=== PATIENT | male | born 1970 | race Caucasian/White ===

== ENCOUNTER 2017-11-02 13:01 | Inpatient (IN) | payer MEDICARE, MEDICAID ==
[~2017-11-02] VITALS: Ht 182.9 cm; Wt 226.4 kg
[~2017-11-02 13:01] MED LIST: ASPI-611 PO; BIOT10005 PO; BUDE10.22 INH; CLIN-80 PO; CYCL5TAB PO; DULO60CA64 PO; FLUT16SP20 BOTHNARES; FURO-150 PO; GABA-532 PO; HUM10VIA; IBUP-1986 PO; MAGN400C PO; METF10002 PO; MONT10TA24 PO; MULT-933 PO; POTA8TAB8 PO; VALS160T29 PO
[2017-11-02 13:59] LABS: BASOPHILS % (AUTO) 0.4 % (0-1); EOSINOPHILS # (AUTO) 0.3 X10'3 (0-0.9); EOSINOPHILS % (AUTO) 2.6 % (0-6); HEMATOCRIT 35.8 % (42.0-52.0); HEMOGLOBIN 12.3 g/dl (14.0-17.9); LYMPHOCYTES # (AUTO) 2.1 X10'3 (1.1-4.8); MEAN CORPUSCULAR HEMOGLOBIN 27.9 PG (27.0-31.0); MEAN CORPUSCULAR HGB CONC 34.3 % (33.0-36.5); MEAN CORPUSCULAR VOLUME 81.2 FL (78-98); MEAN PLATELET VOLUME 7.2 FL (7.4-10.4); MONOCYTES # (AUTO) 0.6 X10'3 (0-0.9); MONOCYTES % (AUTO) 6.6 % (2-12); NEUTROPHILS # (AUTO) 6.6 X10'3 (1.8-7.7); NEUTROPHILS % (AUTO) 68.4 % (42-75); PLATELET COUNT 329 X10'3 (140-440); RED BLOOD COUNT 4.41 X10'6 (4.70-6.10); RED CELL DISTRIBUTION WIDTH 14.8 % (11.5-14.5); WHITE BLOOD COUNT 9.7 X10'3 (4.5-11.0)
[2017-11-02 14:09] LABS: INR 0.9 INR; PARTIAL THROMBOPLASTIN TIME 29 SECONDS (22-32); PROTHROMBIN TIME 9.2 SECONDS (9.0-12.0)
[2017-11-02 14:19] LABS: ALANINE AMINOTRANSFERASE 20 U/L (12-78); ALBUMIN 2.6 G/DL (3.4-5.0); ALBUMIN/GLOBULIN RATIO 0.5 (1.1-1.5); ALKALINE PHOSPHATASE 100 IU/L (46-116); ANION GAP 9 (8-16); ASPARTATE AMINO TRANSFERASE 13 U/L (10-37); BILIRUBIN,TOTAL 0.3 MG/DL (0.1-1.0); BLOOD UREA NITROGEN 19 MG/DL (7-18); BUN/CREATININE RATIO 17.4 (5.4-32.0); CALCIUM 8.5 MG/DL (8.5-10.1); CHLORIDE 93 MMOL/L (99-107); CREATININE 1.09 MG/DL (0.60-1.10); MAGNESIUM 1.7 MG/DL (1.5-2.4); POTASSIUM 4.2 MMOL/L (3.5-5.1); SODIUM 129 MMOL/L (135-145); TOTAL CARBON DIOXIDE 26.8 MMOL/L (24-32); TOTAL PROTEIN 8.1 G/DL (6.4-8.2); eGFR 73 ML/MIN
[2017-11-02 14:24] LABS: GLUCOSE 487 MG/DL (70-104)
[2017-11-02] MEDS ORDERED: MORPHINE 2MG in 2ml NS syringe IV PRN (15:05)
[2017-11-02] MEDS ORDERED: proCHLORperazine 10 MG/2 ml inj IV ONE (15:05)
[2017-11-02] MEDS ORDERED: piperacillin/tazo 3.375gm/50ml 50 ML IV ONE (15:15)
[2017-11-02] MEDS ORDERED: vancomycin/NS 1 GM ADD-VANTAGE 250 ML IV ONE (15:15)
[2017-11-02] MEDS ORDERED: insulin regular, human 10 units/0.1 ml syringe IV ONE (15:45)
[2017-11-02 15:56] LABS: C-REACTIVE PROTEIN 11.46 MG/DL (0.0-0.5)
[2017-11-02] MEDS: morphine 4 MG/ML inj SYRINge IV PRN ×4 (16:01→22:26)
[2017-11-02 17:38] LABS: CLARITY,URINE CLEAR (Clear); COLOR,URINE YELLOW (Yellow); GLUCOSE, URINE >=1000 mg/dl (Neg); KETONES,URINE NEGATIVE (Neg); LEUKOCYTE ESTERASE ,URINE NEGATIVE (Neg); NITRITES, URINE NEGATIVE (Neg); OCCULT BLOOD,URINE SMALL (Neg); PROTEIN,URINE 100 mg/dl (Neg); UROBILINOGEN,URINE 0.2 E.U/dL (0.2-1.0)
[2017-11-02 17:39] LABS: UA COLLECTION TYPE URINAL
[2017-11-02 17:58] LABS: BACTERIA,URINE FEW /HPF (Neg); MUCUS STRANDS FEW /LPF (Neg); RBC,URINE 0-2 /HPF (0-2); SQUAMOUS EPITHELIAL CELL,UR FEW /LPF (FEW); WBC,URINE 0-4 /HPF (0-4)
[2017-11-02] MEDS ORDERED: dextrose ORAL solution 15 GM/59 ML bottle PO PRN ×2 (18:50)
[2017-11-02] MEDS ORDERED: glucagon, human recombinant 1mg kit SUBCUT PRN (18:50)
[2017-11-02] MEDS ORDERED: MESSAGE TO PHARMACY PO ONE (18:50)
[2017-11-02] MEDS ORDERED: dextrose 50%-water 50ml dispensing syringe IV PRN ×2 (18:50)
[2017-11-02] MEDS ORDERED: mag hydrox/Alum hydrox/simeth 30ml oral suspension PO PRN (19:00)
[2017-11-02] MEDS ORDERED: acetaminophen 325mg tablet PO PRN (19:00)
[2017-11-02] MEDS ORDERED: ondansetron/PF 4mg/2ml inj IV PRN (19:00)
[2017-11-02] MEDS ORDERED: morphine 4 MG/ML inj SYRINge IV PRN (19:00)
[2017-11-02 19:19] LABS: HEMOGLOBIN A1C 11.3 % (4.5-6.2)
[2017-11-02] MEDS: furosemide 20MG tablet PO SCH (20:34)
[2017-11-02] MEDS: heparin, porcine 5000 units/ml vial SQ SCH (20:34)
[2017-11-02] MEDS ORDERED: cyclobenzaprine 10mg tablet PO PRN (21:00)
[2017-11-02] MEDS: insulin Lispro (HumaLOG) vial - multi-dose SQ SCH (22:31)
[2017-11-02] MEDS: montelukast 10mg tablet PO SCH (22:32)
[2017-11-03] VITALS: BP 104/69
[2017-11-03] MEDS ORDERED: piperacillin/tazo 4.5gm/100ml 100 ML IV SCH
[2017-11-03] MEDS: gabapentin 300mg capsule PO SCH ×4 (01:05→23:30)
[2017-11-03] MEDS: magnesium oxide 400mg tablet PO SCH ×4 (01:05→23:30)
[2017-11-03] MEDS: magnesium hydroxide 30ml (MOM) UD suspension PO PRN (01:05)
[2017-11-03] MEDS: morphine 4 MG/ML inj SYRINge IV PRN ×4 (03:05→23:30)
[2017-11-03 05:21] LABS: BASOPHILS % (AUTO) 0.3 % (0-1); EOSINOPHILS # (AUTO) 0.3 X10'3 (0-0.9); EOSINOPHILS % (AUTO) 3.9 % (0-6); HEMATOCRIT 34.3 % (42.0-52.0); HEMOGLOBIN 11.5 g/dl (14.0-17.9); LYMPHOCYTES # (AUTO) 1.9 X10'3 (1.1-4.8); LYMPHOCYTES % (AUTO) 22.3 % (21-51); MEAN CORPUSCULAR HEMOGLOBIN 27.7 PG (27.0-31.0); MEAN CORPUSCULAR HGB CONC 33.4 % (33.0-36.5); MEAN CORPUSCULAR VOLUME 83.1 FL (78-98); MEAN PLATELET VOLUME 7.9 FL (7.4-10.4); MONOCYTES # (AUTO) 0.6 X10'3 (0-0.9); MONOCYTES % (AUTO) 6.5 % (2-12); NEUTROPHILS # (AUTO) 5.8 X10'3 (1.8-7.7); PLATELET COUNT 307 X10'3 (140-440); RED BLOOD COUNT 4.13 X10'6 (4.70-6.10); RED CELL DISTRIBUTION WIDTH 14.7 % (11.5-14.5); WHITE BLOOD COUNT 8.7 X10'3 (4.5-11.0)
[2017-11-03 05:58] LABS: ALANINE AMINOTRANSFERASE 15 U/L (12-78); ALBUMIN 2.3 G/DL (3.4-5.0); ALBUMIN/GLOBULIN RATIO 0.5 (1.1-1.5); ALKALINE PHOSPHATASE 81 IU/L (46-116); ANION GAP 5 (8-16); ASPARTATE AMINO TRANSFERASE 8 U/L (10-37); BILIRUBIN,TOTAL 0.4 MG/DL (0.1-1.0); BLOOD UREA NITROGEN 18 MG/DL (7-18); BUN/CREATININE RATIO 18.2 (5.4-32.0); CALCIUM 8.6 MG/DL (8.5-10.1); CHLORIDE 99 MMOL/L (99-107); CREATININE 0.99 MG/DL (0.60-1.10); GLUCOSE 296 MG/DL (70-104); SODIUM 134 MMOL/L (135-145); TOTAL CARBON DIOXIDE 29.6 MMOL/L (24-32); TOTAL PROTEIN 7.3 G/DL (6.4-8.2); eGFR 81 ML/MIN
[2017-11-03] MEDS ORDERED: insulin glargine (Lantus) pen - multi-dose SQ SCH ×2 (07:30→17:30)
[2017-11-03 08:00] VITALS: BP 145/83
[2017-11-03] MEDS: heparin, porcine 5000 units/ml vial SQ SCH ×2 (08:00→21:02)
[2017-11-03] MEDS: furosemide 20MG tablet PO SCH ×2 (09:46→21:01)
[2017-11-03] MEDS: duloxetine 30mg CAPSULE.DR PO SCH (09:46)
[2017-11-03] MEDS: multivitamins, therapeutics tablet PO SCH (09:46)
[2017-11-03] MEDS: potassium chloride 8mEq ER tablet PO SCH (09:46)
[2017-11-03] MEDS: aspirin 81mg tab.chew PO SCH (09:47)
[2017-11-03] MEDS: CefTRIAXone 2gm/D5W 50ml 50 ML IV SCH ×3 (09:55→21:01)
[2017-11-03] MEDS: insulin Lispro (HumaLOG) vial - multi-dose SQ SCH ×3 (10:03→19:14)
[2017-11-03 11:00] VITALS: BP 133/74
[2017-11-03] MEDS: metroNIDAZOLE 500mg tablet PO SCH ×2 (13:22→21:01)
[2017-11-03] MEDS: oxyCODONE/APAP 10/325mg tablet PO PRN (15:55)
[2017-11-03] MEDS: insulin glargine (Lantus) pen - multi-dose SQ SCH (17:47)
[2017-11-03 18:25] VITALS: BP 140/72
[2017-11-03] MEDS: montelukast 10mg tablet PO SCH (21:02)
[2017-11-03] MEDS ORDERED: VANCOMYCIN LEVEL IV NR (22:30)
[2017-11-04] VITALS: BP 135/71
[2017-11-04] MEDS: oxyCODONE/APAP 10/325mg tablet PO PRN ×3 (02:02→17:41)
[2017-11-04] MEDS: morphine 4 MG/ML inj SYRINge IV PRN ×3 (04:52→20:20)
[2017-11-04] MEDS: magnesium hydroxide 30ml (MOM) UD suspension PO PRN (05:10)
[2017-11-04 05:58] LABS: BASOPHILS % (AUTO) 0.3 % (0-1); EOSINOPHILS # (AUTO) 0.5 X10'3 (0-0.9); EOSINOPHILS % (AUTO) 6.2 % (0-6); HEMATOCRIT 33.3 % (42.0-52.0); HEMOGLOBIN 11.1 g/dl (14.0-17.9); LYMPHOCYTES # (AUTO) 1.4 X10'3 (1.1-4.8); LYMPHOCYTES % (AUTO) 19.4 % (21-51); MEAN CORPUSCULAR HEMOGLOBIN 27.7 PG (27.0-31.0); MEAN CORPUSCULAR HGB CONC 33.4 % (33.0-36.5); MEAN CORPUSCULAR VOLUME 82.9 FL (78-98); MONOCYTES # (AUTO) 0.5 X10'3 (0-0.9); MONOCYTES % (AUTO) 6.4 % (2-12); NEUTROPHILS % (AUTO) 67.7 % (42-75); PLATELET COUNT 312 X10'3 (140-440); RED BLOOD COUNT 4.01 X10'6 (4.70-6.10); RED CELL DISTRIBUTION WIDTH 14.7 % (11.5-14.5); WHITE BLOOD COUNT 7.4 X10'3 (4.5-11.0)
[2017-11-04 06:44] LABS: ALANINE AMINOTRANSFERASE 16 U/L (12-78); ALBUMIN 2.1 G/DL (3.4-5.0); ALBUMIN/GLOBULIN RATIO 0.4 (1.1-1.5); ALKALINE PHOSPHATASE 76 IU/L (46-116); ANION GAP 5 (8-16); ASPARTATE AMINO TRANSFERASE 11 U/L (10-37); BILIRUBIN,TOTAL 0.2 MG/DL (0.1-1.0); BLOOD UREA NITROGEN 18 MG/DL (7-18); BUN/CREATININE RATIO 22.8 (5.4-32.0); CALCIUM 8.6 MG/DL (8.5-10.1); CHLORIDE 100 MMOL/L (99-107); CREATININE 0.79 MG/DL (0.60-1.10); GLUCOSE 164 MG/DL (70-104); POTASSIUM 4.2 MMOL/L (3.5-5.1); SODIUM 135 MMOL/L (135-145); TOTAL CARBON DIOXIDE 30.2 MMOL/L (24-32); TOTAL PROTEIN 6.9 G/DL (6.4-8.2); eGFR > 90 ML/MIN
[2017-11-04] MEDS: insulin glargine (Lantus) pen - multi-dose SQ SCH ×2 (07:09→17:44)
[2017-11-04 08:00] VITALS: BP 101/51
[2017-11-04] MEDS ORDERED: ketorolac tromethamine 15mg/ml inj. IM PRN (08:35)
[2017-11-04] MEDS: gabapentin 300mg capsule PO SCH ×3 (08:45→23:04)
[2017-11-04] MEDS: metroNIDAZOLE 500mg tablet PO SCH ×3 (08:45→20:19)
[2017-11-04] MEDS: CefTRIAXone 2gm/D5W 50ml 50 ML IV SCH ×2 (08:45→19:42)
[2017-11-04] MEDS: potassium chloride 8mEq ER tablet PO SCH (08:45)
[2017-11-04] MEDS: magnesium oxide 400mg tablet PO SCH ×3 (08:45→23:04)
[2017-11-04] MEDS: aspirin 81mg tab.chew PO SCH (08:45)
[2017-11-04] MEDS: duloxetine 30mg CAPSULE.DR PO SCH (08:45)
[2017-11-04] MEDS: multivitamins, therapeutics tablet PO SCH (08:45)
[2017-11-04] MEDS: furosemide 20MG tablet PO SCH ×2 (08:46→19:30)
[2017-11-04] MEDS: heparin, porcine 5000 units/ml vial SQ SCH ×2 (08:47→19:31)
[2017-11-04] MEDS: insulin Lispro (HumaLOG) vial - multi-dose SQ SCH ×3 (08:58→18:51)
[2017-11-04 11:46] VITALS: BP 97/45
[2017-11-04 12:18] VITALS: BP 117/74
[2017-11-04] MEDS: lactobacillus rhamnosus 10,000 MMU CELLS/CAPSULE PO SCH (19:30)
[2017-11-04 20:00] VITALS: BP 109/68
[2017-11-04] MEDS: montelukast 10mg tablet PO SCH (20:19)
[2017-11-04] MEDS: zolpidem 5mg tablet PO PRN (21:08)
[2017-11-05] VITALS: BP 159/63
[2017-11-05] MEDS: ketorolac tromethamine 15mg/ml inj. IV PRN ×3 (00:39→20:07)
[2017-11-05] MEDS: morphine 4 MG/ML inj SYRINge IV PRN ×4 (00:59→20:06)
[2017-11-05 05:34] LABS: BASOPHILS % (AUTO) 0.3 % (0-1); EOSINOPHILS # (AUTO) 0.5 X10'3 (0-0.9); EOSINOPHILS % (AUTO) 6.4 % (0-6); HEMATOCRIT 33.8 % (42.0-52.0); HEMOGLOBIN 11.4 g/dl (14.0-17.9); LYMPHOCYTES # (AUTO) 1.5 X10'3 (1.1-4.8); LYMPHOCYTES % (AUTO) 20.7 % (21-51); MEAN CORPUSCULAR HEMOGLOBIN 27.5 PG (27.0-31.0); MEAN CORPUSCULAR HGB CONC 33.6 % (33.0-36.5); MEAN CORPUSCULAR VOLUME 81.9 FL (78-98); MEAN PLATELET VOLUME 6.8 FL (7.4-10.4); MONOCYTES # (AUTO) 0.5 X10'3 (0-0.9); MONOCYTES % (AUTO) 6.2 % (2-12); NEUTROPHILS # (AUTO) 4.9 X10'3 (1.8-7.7); NEUTROPHILS % (AUTO) 66.4 % (42-75); PLATELET COUNT 339 X10'3 (140-440); RED BLOOD COUNT 4.13 X10'6 (4.70-6.10); RED CELL DISTRIBUTION WIDTH 15.2 % (11.5-14.5); WHITE BLOOD COUNT 7.3 X10'3 (4.5-11.0)
[2017-11-05 06:01] LABS: ALANINE AMINOTRANSFERASE 14 U/L (12-78); ALBUMIN 2.1 G/DL (3.4-5.0); ALBUMIN/GLOBULIN RATIO 0.4 (1.1-1.5); ALKALINE PHOSPHATASE 72 IU/L (46-116); ANION GAP 7 (8-16); ASPARTATE AMINO TRANSFERASE 12 U/L (10-37); BILIRUBIN,TOTAL 0.2 MG/DL (0.1-1.0); BLOOD UREA NITROGEN 25 MG/DL (7-18); BUN/CREATININE RATIO 27.2 (5.4-32.0); CALCIUM 8.3 MG/DL (8.5-10.1); CHLORIDE 102 MMOL/L (99-107); CREATININE 0.92 MG/DL (0.60-1.10); GLUCOSE 139 MG/DL (70-104); POTASSIUM 4.6 MMOL/L (3.5-5.1); SODIUM 137 MMOL/L (135-145); TOTAL CARBON DIOXIDE 28.4 MMOL/L (24-32); TOTAL PROTEIN 6.8 G/DL (6.4-8.2); eGFR 88 ML/MIN
[2017-11-05 08:00] VITALS: BP 138/67
[2017-11-05] MEDS: multivitamins, therapeutics tablet PO SCH (09:15)
[2017-11-05] MEDS: aspirin 81mg tab.chew PO SCH (09:16)
[2017-11-05] MEDS: lactobacillus rhamnosus 10,000 MMU CELLS/CAPSULE PO SCH ×2 (09:16→20:08)
[2017-11-05] MEDS: potassium chloride 8mEq ER tablet PO SCH (09:16)
[2017-11-05] MEDS: gabapentin 300mg capsule PO SCH ×3 (09:16→23:53)
[2017-11-05] MEDS: duloxetine 30mg CAPSULE.DR PO SCH (09:17)
[2017-11-05] MEDS: metroNIDAZOLE 500mg tablet PO SCH ×3 (09:17→20:45)
[2017-11-05] MEDS: magnesium oxide 400mg tablet PO SCH ×3 (09:17→23:53)
[2017-11-05] MEDS: furosemide 20MG tablet PO SCH ×2 (09:17→20:08)
[2017-11-05] MEDS: heparin, porcine 5000 units/ml vial SQ SCH ×2 (09:19→20:08)
[2017-11-05] MEDS: insulin glargine (Lantus) pen - multi-dose SQ SCH ×2 (09:28→17:40)
[2017-11-05] MEDS: insulin Lispro (HumaLOG) vial - multi-dose SQ SCH (09:29)
[2017-11-05] MEDS: CefTRIAXone 2gm/D5W 50ml 50 ML IV SCH ×2 (10:29→20:08)
[2017-11-05 12:00] VITALS: BP 144/88
[2017-11-05] MEDS: oxyCODONE/APAP 10/325mg tablet PO PRN (12:18)
[2017-11-05 20:00] VITALS: BP 158/92
[2017-11-05] MEDS: montelukast 10mg tablet PO SCH (20:45)
[2017-11-05] MEDS: zolpidem 5mg tablet PO PRN (21:58)
[2017-11-06] VITALS: BP 126/73
[2017-11-06] MEDS: morphine 4 MG/ML inj SYRINge IV PRN (01:25)
[2017-11-06 05:27] LABS: BASOPHILS % (AUTO) 0.3 % (0-1); EOSINOPHILS # (AUTO) 0.4 X10'3 (0-0.9); EOSINOPHILS % (AUTO) 6.3 % (0-6); HEMATOCRIT 34.1 % (42.0-52.0); HEMOGLOBIN 11.4 g/dl (14.0-17.9); LYMPHOCYTES # (AUTO) 1.1 X10'3 (1.1-4.8); LYMPHOCYTES % (AUTO) 17.2 % (21-51); MEAN CORPUSCULAR HEMOGLOBIN 27.6 PG (27.0-31.0); MEAN CORPUSCULAR HGB CONC 33.4 % (33.0-36.5); MEAN CORPUSCULAR VOLUME 82.5 FL (78-98); MEAN PLATELET VOLUME 7.1 FL (7.4-10.4); MONOCYTES # (AUTO) 0.3 X10'3 (0-0.9); MONOCYTES % (AUTO) 5.2 % (2-12); NEUTROPHILS # (AUTO) 4.7 X10'3 (1.8-7.7); PLATELET COUNT 293 X10'3 (140-440); RED BLOOD COUNT 4.13 X10'6 (4.70-6.10); RED CELL DISTRIBUTION WIDTH 14.8 % (11.5-14.5); WHITE BLOOD COUNT 6.6 X10'3 (4.5-11.0)
[2017-11-06 05:52] LABS: ALANINE AMINOTRANSFERASE 25 U/L (12-78); ALBUMIN/GLOBULIN RATIO 0.4 (1.1-1.5); ALKALINE PHOSPHATASE 71 IU/L (46-116); ANION GAP 6 (8-16); ASPARTATE AMINO TRANSFERASE 27 U/L (10-37); BILIRUBIN,TOTAL 0.2 MG/DL (0.1-1.0); BLOOD UREA NITROGEN 29 MG/DL (7-18); BUN/CREATININE RATIO 29.9 (5.4-32.0); CALCIUM 8.3 MG/DL (8.5-10.1); CHLORIDE 103 MMOL/L (99-107); CREATININE 0.97 MG/DL (0.60-1.10); GLUCOSE 152 MG/DL (70-104); POTASSIUM 4.6 MMOL/L (3.5-5.1); SODIUM 138 MMOL/L (135-145); TOTAL CARBON DIOXIDE 28.8 MMOL/L (24-32); TOTAL PROTEIN 6.5 G/DL (6.4-8.2); eGFR 83 ML/MIN
[2017-11-06 07:00] VITALS: BP 157/95
[2017-11-06] MEDS: insulin glargine (Lantus) pen - multi-dose SQ SCH (07:30)
[2017-11-06] MEDS: CefTRIAXone 2gm/D5W 50ml 50 ML IV SCH (08:00)
[2017-11-06] MEDS ORDERED: fluconazole-Diflucan 200mg/NS 100 ML IV SCH (08:00)
[2017-11-06] MEDS: lactobacillus rhamnosus 10,000 MMU CELLS/CAPSULE PO SCH (08:09)
[2017-11-06] MEDS: furosemide 20MG tablet PO SCH (08:09)
[2017-11-06] MEDS: aspirin 81mg tab.chew PO SCH (08:10)
[2017-11-06] MEDS: multivitamins, therapeutics tablet PO SCH (08:11)
[2017-11-06] MEDS: duloxetine 30mg CAPSULE.DR PO SCH (08:11)
[2017-11-06] MEDS: oxyCODONE/APAP 10/325mg tablet PO PRN (08:12)
[2017-11-06] MEDS: gabapentin 300mg capsule PO SCH (08:12)
[2017-11-06] MEDS: magnesium oxide 400mg tablet PO SCH (08:12)
[2017-11-06] MEDS: potassium chloride 8mEq ER tablet PO SCH (08:13)
[2017-11-06] MEDS: heparin, porcine 5000 units/ml vial SQ SCH (08:14)
[2017-11-06] MEDS: metroNIDAZOLE 500mg tablet PO SCH ×2 (08:16→13:55)
[2017-11-06] MEDS ORDERED: AMOX-422 PO (10:59)
[2017-11-06] MEDS ORDERED: LACT1CAP26 PO (10:59)
[2017-11-06] MEDS ORDERED: PER10325T PO (10:59)
[2017-11-06] MEDS ORDERED: FLUC100T9 PO (10:59)
[2017-11-06 11:00] VITALS: BP 147/87
[2017-11-06] MEDS: insulin Lispro (HumaLOG) vial - multi-dose SQ SCH (11:02)
[2017-11-06] MEDS ORDERED: VANCOMYCIN LEVEL IV NR (22:30)
== END 2017-11-06 15:00 | disposition home or self-care (01) | DRG 603 ==
LOC: ER 13:03 → ED HOLD 18:57 → SUR 3N 21:00
PROVIDERS: ADMIT Family Medicine; ATTEND Family Medicine
PROC: 5A09357 Assistance with Respiratory Ventilation, Less than 24 Consecutive Hours, Continuous Positive Airway Pressure (ICD-10-PCS; principal; 2017-11-03)
PROC: 0H9MXZX Drainage of Right Foot Skin, External Approach, Diagnostic (ICD-10-PCS; 2017-11-03)
DX: L03.115 Cellulitis of right lower limb (principal); E11.40 Type 2 diabetes mellitus with diabetic neuropathy, unspecified; E11.621 Type 2 diabetes mellitus with foot ulcer; E87.1 Hypo-osmolality and hyponatremia; B35.1 Tinea unguium; E44.1 Mild protein-calorie malnutrition; Z68.44 Body mass index [BMI] 60.0-69.9, adult; L03.116 Cellulitis of left lower limb; E11.65 Type 2 diabetes mellitus with hyperglycemia; J30.9 Allergic rhinitis, unspecified; E66.01 Morbid (severe) obesity due to excess calories; L97.519 Non-pressure chronic ulcer of other part of right foot with unspecified severity; D63.8 Anemia in other chronic diseases classified elsewhere; F32.9 Major depressive disorder, single episode, unspecified; A49.01 Methicillin susceptible Staphylococcus aureus infection, unspecified site; I10 Essential (primary) hypertension; M54.2 Cervicalgia; G47.33 Obstructive sleep apnea (adult) (pediatric); J44.9 Chronic obstructive pulmonary disease, unspecified; Z89.422 Acquired absence of other left toe(s); Z89.412 Acquired absence of left great toe; Z79.4 Long term (current) use of insulin; Z79.51 Long term (current) use of inhaled steroids; Z79.82 Long term (current) use of aspirin; Z79.899 Other long term (current) drug therapy; Z91.018 Allergy to other foods
CPT/HCPCS: 36415; 71045; 73600; 73620; 80053; 80202; 81001; 82948; 83036; 83605; 83735; 84145; 85025; 85610; 85651; 85730; 86140; 87040; 87070; 87077; 87186; 93005; 93970; 94640; 94660; 94760; 96365; 96366; 96375; 99285; A6257; A6446; A6449; J0696; J0780; J1450; J1644; J1815; J1885; J2270; J2543; J3370; J3490; J7030

== ENCOUNTER 2018-09-15 03:33 | Emergency (ER) | payer MEDICARE, MEDICAID ==
[~2018-09-15] VITALS: Ht 182.9 cm; Wt 227.0 kg
[~2018-09-15 03:33] MED LIST changes: -CLIN-80 PO; +FLUC100T9 PO; +LACT1CAP26 PO; +METF-438 PO; -METF10002 PO; +PER10325T PO; -VALS160T29 PO; +VALS160T30 PO
--- NOTE | 2018-09-15 03:44 | NUR ---
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
[2018-09-15] MEDS ORDERED: ondansetron/PF 4mg/2ml inj IV ONE (03:45)
[2018-09-15] MEDS ORDERED: morphine 4 MG/ML inj SYRINge IV PRN (03:45)
[2018-09-15] MEDS ORDERED: normal saline 1000ML IV soln IV ONE (03:45)
[2018-09-15 04:02] LABS: BASOPHILS % (AUTO) 0.2 % (0-1); EOSINOPHILS # (AUTO) 0.4 X10'3 (0-0.9); EOSINOPHILS % (AUTO) 4.2 % (0-6); HEMATOCRIT 38.4 % (42.0-52.0); HEMOGLOBIN 12.6 g/dl (14.0-17.9); LYMPHOCYTES # (AUTO) 1.8 X10'3 (1.1-4.8); LYMPHOCYTES % (AUTO) 19.7 % (21-51); MEAN CORPUSCULAR HEMOGLOBIN 27.3 PG (27.0-31.0); MEAN CORPUSCULAR HGB CONC 32.8 g/dL (33.0-36.5); MEAN CORPUSCULAR VOLUME 83.3 FL (78-98); MEAN PLATELET VOLUME 7.7 FL (7.4-10.4); MONOCYTES # (AUTO) 0.8 X10'3 (0-0.9); NEUTROPHILS # (AUTO) 6.3 X10'3 (1.8-7.7); NEUTROPHILS % (AUTO) 67.9 % (42-75); PLATELET COUNT 286 X10'3 (140-440); RED BLOOD COUNT 4.61 X10'6 (4.70-6.10); RED CELL DISTRIBUTION WIDTH 15.7 % (11.5-14.5); WHITE BLOOD COUNT 9.3 X10'3 (4.5-11.0)
[2018-09-15 04:03] LABS: INR 1.1 INR; PARTIAL THROMBOPLASTIN TIME 27 SECONDS (22-32); PROTHROMBIN TIME 10.7 SECONDS (9.0-12.0)
[2018-09-15] MEDS: morphine 10mg/ml inj. IV PRN ×2 (04:03→06:38)
[2018-09-15 04:06] LABS: ALANINE AMINOTRANSFERASE 31 U/L (12-78); ALBUMIN 2.9 G/DL (3.4-5.0); ALBUMIN/GLOBULIN RATIO 0.6 (1.1-1.5); ALKALINE PHOSPHATASE 88 IU/L (46-116); ANION GAP 11 (8-16); ASPARTATE AMINO TRANSFERASE 20 U/L (10-37); BILIRUBIN,TOTAL 0.4 MG/DL (0.1-1.0); BLOOD UREA NITROGEN 35 MG/DL (7-18); BUN/CREATININE RATIO 22.6 (5.4-32.0); CALCIUM 9.2 MG/DL (8.5-10.1); CHLORIDE 103 MMOL/L (99-107); CREATININE 1.55 MG/DL (0.60-1.10); GLUCOSE 311 MG/DL (70-104); LIPASE 101 U/L (73-393); MAGNESIUM 1.6 MG/DL (1.5-2.4); POTASSIUM 3.7 MMOL/L (3.5-5.1); SODIUM 138 MMOL/L (135-145); TOTAL CARBON DIOXIDE 24.2 MMOL/L (24-32); TOTAL PROTEIN 8.1 G/DL (6.4-8.2); eGFR 48 ML/MIN
[2018-09-15] MEDS ORDERED: vancomycin/NS 1 GM ADD-VANTAGE 250 ML IV ONE (05:05)
[2018-09-15] MEDS ORDERED: CefTRIAXone/D5W-Rocephin 1gm 50 ML IV ONE (05:05)
--- NOTE | 2018-09-15 05:11 | NUR ---
CALLED [facility] TO TRANSFER TO [facility]. WAS TOLD THEY WOULD CALL BACK WITH ETA OF TRANSFER AT 05:10.
--- NOTE | 2018-09-15 05:48 | NUR ---
CALLED [facility] FOR ETA AT 05:49. WAS TOLD STILL WAITING FOR ETA
[2018-09-15 06:39] VITALS: BP 142/72
[2018-09-25] MEDS ORDERED: MULT-963 PO (02:17)
[2018-09-25] MEDS ORDERED: SERT50TA PO (02:17)
[2018-09-25] MEDS ORDERED: ATOR80TA PO (02:17)
[2018-09-25] MEDS ORDERED: COU1T PO (02:17)
[2018-09-25] MEDS ORDERED: LEVO100T PO (02:17)
[2018-09-25] MEDS ORDERED: OXYB5TAB11 PO (02:17)
[2018-09-25] MEDS ORDERED: OXCA300T16 PO (02:17)
[2018-09-25] MEDS ORDERED: HYDR-3686 PO (02:17)
[2018-09-25] MEDS ORDERED: TRAZ-218 PO (02:17)
[2018-09-25] MEDS ORDERED: BUSP10TA11 PO (02:17)
[2018-09-25] MEDS ORDERED: DOXE10CA2 PO (02:17)
[2018-09-25] MEDS ORDERED: MAGN400C PO (02:17)
[2018-09-25] MEDS ORDERED: MIDO2.5T14 PO (02:17)
[2018-09-25] MEDS ORDERED: AMIO200T40 PO (02:17)
[2018-09-25] MEDS ORDERED: FAMO20TA8 PO (02:17)
[2018-09-25] MEDS ORDERED: FERR325T28 PO (02:17)
[2018-09-25] MEDS ORDERED: ESTR10TA9 PO (02:17)
== END 2018-09-15 07:02 | disposition short-term general hospital (02) ==
LOC: ER 03:33
DX: L03.314 Cellulitis of groin (principal); R19.7 Diarrhea, unspecified; R10.84 Generalized abdominal pain; E11.9 Type 2 diabetes mellitus without complications; I10 Essential (primary) hypertension; Z98.890 Other specified postprocedural states; Z91.018 Allergy to other foods; Z79.82 Long term (current) use of aspirin; Z79.899 Other long term (current) drug therapy
CPT/HCPCS: 36415; 80053; 83690; 83735; 84145; 84484; 85025; 85610; 85730; 93005; 96374; 96375; 96376; 99285; J0696; J2270; J2405; J3370; J7030

== ENCOUNTER 2018-09-24 19:31 | Inpatient (IN) | payer MEDICARE, MEDICAID | END 2018-10-03 16:00 | LOC: ORTHO 4S 09-27 18:27 → ER 19:31 → ED HOLD 09-25 01:53 → PCU 3S 09-25 04:15 | PROC: 0Y6Q0Z0 Detachment at Left 1st Toe, Complete, Open Approach (ICD-10-PCS; principal; 2018-09-30 08:21) | PROC: 0HBRXZZ Excision of Toe Nail, External Approach (ICD-10-PCS; 2018-09-30 08:21) | DX: A41.9 Sepsis, unspecified organism (principal); N10 Acute pyelonephritis; E87.1 Hypo-osmolality and hyponatremia; L02.611 Cutaneous abscess of right foot; E11.52 Type 2 diabetes mellitus with diabetic peripheral angiopathy with gangrene; I96 Gangrene, not elsewhere classified; E66.01 Morbid (severe) obesity due to excess calories ==

== ENCOUNTER 2018-10-18 17:25 | Emergency (ER) | payer MEDICARE, MEDICAID ==
[~2018-10-18] VITALS: Ht 180.3 cm; Wt 256.8 kg
[~2018-10-18 17:25] MED LIST changes: +AMIO200T40 PO; -ASPI-611 PO; +ATOR80TA PO; -BIOT10005 PO; -BUDE10.22 INH; +COU1T PO; -CYCL5TAB PO; +DOXE10CA2 PO; -DULO60CA64 PO; +FAMO20TA8 PO; +FERR325T28 PO; -FLUC100T9 PO; -FLUT16SP20 BOTHNARES; -GABA-532 PO; -HUM10VIA; +HYDR-4353 PO; -IBUP-1986 PO; -LACT1CAP26 PO; +LEVO100T PO; -METF-438 PO; -MONT10TA24 PO; -MULT-933 PO; +MULT-963 PO; +OXCA300T16 PO; +OXYB5TAB11 PO; -PER10325T PO; +POTA20TA19 PO; -POTA8TAB8 PO; +SERT50TA PO; +TRAZ-218 PO; -VALS160T30 PO
[2018-10-18] MEDS ORDERED: furosemide 10 MG/1 ML 10ml inj IV ONE (17:50)
[2018-10-18 18:23] LABS: BASOPHILS % (AUTO) 0.3 % (0-1); EOSINOPHILS # (AUTO) 0.3 X10'3 (0-0.9); EOSINOPHILS % (AUTO) 4.7 % (0-6); HEMATOCRIT 32.3 % (42.0-52.0); HEMOGLOBIN 10.7 g/dl (14.0-17.9); LYMPHOCYTES # (AUTO) 0.8 X10'3 (1.1-4.8); LYMPHOCYTES % (AUTO) 13.1 % (21-51); MEAN CORPUSCULAR HEMOGLOBIN 27.4 PG (27.0-31.0); MEAN CORPUSCULAR VOLUME 83.1 FL (78-98); MEAN PLATELET VOLUME 7.1 FL (7.4-10.4); MONOCYTES # (AUTO) 0.4 X10'3 (0-0.9); NEUTROPHILS # (AUTO) 4.5 X10'3 (1.8-7.7); NEUTROPHILS % (AUTO) 75.9 % (42-75); PLATELET COUNT 212 X10'3 (140-440); RED BLOOD COUNT 3.88 X10'6 (4.70-6.10); RED CELL DISTRIBUTION WIDTH 15.7 % (11.5-14.5); WHITE BLOOD COUNT 5.9 X10'3 (4.5-11.0)
--- NOTE | 2018-10-18 18:30 | NUR ---
2-person assist to [facility].
[2018-10-18 18:37] LABS: ALANINE AMINOTRANSFERASE 49 U/L (12-78); ALBUMIN 2.8 G/DL (3.4-5.0); ALBUMIN/GLOBULIN RATIO 0.6 (1.1-1.5); ALKALINE PHOSPHATASE 111 IU/L (46-116); ANION GAP 7 (8-16); ASPARTATE AMINO TRANSFERASE 24 U/L (10-37); BILIRUBIN,TOTAL 0.2 MG/DL (0.1-1.0); BLOOD UREA NITROGEN 27 MG/DL (7-18); BUN/CREATININE RATIO 28.7 (5.4-32.0); CALCIUM 8.5 MG/DL (8.5-10.1); CHLORIDE 103 MMOL/L (99-107); CREATININE 0.94 MG/DL (0.60-1.10); GLUCOSE 229 MG/DL (70-104); POTASSIUM 4.4 MMOL/L (3.5-5.1); SODIUM 137 MMOL/L (135-145); TOTAL CARBON DIOXIDE 27.5 MMOL/L (24-32); TOTAL PROTEIN 7.5 G/DL (6.4-8.2); eGFR 86 ML/MIN
[2018-10-18 18:41] LABS: INR 1.5 INR; PROTHROMBIN TIME 14.7 SECONDS (9.0-12.0)
[2018-10-18 18:44] LABS: MAGNESIUM 1.5 MG/DL (1.5-2.4)
--- NOTE | 2018-10-18 19:41 | NUR ---
pt assisted to [facility].
[2018-10-18] MEDS ORDERED: traMADol 50MG tablet PO ONE (20:15)
[2018-10-18] MEDS ORDERED: ondansetron 4mg rapidly disintigrating tab PO ONE (20:15)
--- NOTE | 2018-10-18 20:53 | NUR ---
PT UP TO [facility] AGAIN TO VOID. REPORTING PAIN TO HIS SCROTUM AND AMPTUATION SITE 10 OTU OF 10. GIVEN TRAMADOL.
--- NOTE | 2018-10-18 21:07 | NUR ---
chan post acute care rn , jasbir, calling for updated on pt. i updated her he has not yet been listed to be admitted. she requests call if pt to be admitted. # [phone]
--- NOTE | 2018-10-18 21:32 | NUR ---
Nurse:Nurse with [facility] ([phone]) r/t tx provided and change in medication order per edmd. Frannie verbalized understanding including current efforts to secure transporation for pt.
[2018-10-18 22:55] VITALS: BP 143/62
== END 2018-10-18 22:45 | disposition home or self-care (01) ==
LOC: ER 17:26
DX: I11.0 Hypertensive heart disease with heart failure (principal); I50.9 Heart failure, unspecified; R63.5 Abnormal weight gain; G89.29 Other chronic pain; E03.9 Hypothyroidism, unspecified; Z98.890 Other specified postprocedural states; Z88.8 Allergy status to other drugs, medicaments and biological substances; Z79.01 Long term (current) use of anticoagulants; Z79.899 Other long term (current) drug therapy
CPT/HCPCS: 36415; 71045; 80053; 83735; 83880; 84484; 85025; 85610; 93005; 96374; 99284; J1940